=== PATIENT | male | born 1985 | race Caucasian/White ===

== ENCOUNTER 2021-01-18 11:41 | Emergency (ER) | payer OTHER ==
[2021-01-18 13:28] LABS: BASOPHIL 0.7 % (0-2); EOSINOPHIL 3.8 % (0-5); HCT 35.6 % (42.0-52.0); MCH 30.2 pg (25.0-31.0); MCHC 33.7 g/dL (32.0-36.0); MCV 89.7 fL (78.0-100.0); MONOCYTE 10.4 % (0-12); MPV 9.4 fL (6.0-9.5); NEUTROPHIL 59.9 % (41-80); NRBC 0; PLT 197 K/uL (150-400); RBC 3.97 M/uL (4.70-6.00); RDW 13.2 % (11.5-14.0); WBC 9.2 K/uL (4.0-10.5)
[2021-01-18 13:28] LABS: BILIRUBIN NEGATIVE (NEGATIVE); BLOOD NEGATIVE Ery/uL (NEGATIVE); CLARITY CLEAR (CLEAR); COLOR YELLOW (YELLOW); GLUCOSE (U) NORMAL (NORMAL); LEUKOCYTES 1+ Leu/uL (NEGATIVE); NITRITE NEGATIVE (NEGATIVE); PROTEIN NEGATIVE (NEGATIVE); UROBILINOGEN 0.2 mg/dL (0.2-1.0)
[2021-01-18 13:36] LABS: BACTERIA TRACE
[2021-01-18 13:37] LABS: AMPHETAMINES NEGATIVE (NEGATIVE); BARBITURATES NEGATIVE (NEGATIVE); ECSTASY (MDMA) NEGATIVE (NEGATIVE); MARIJUANA (THC) NEGATIVE (NEGATIVE); METHADONE NEGATIVE (NEGATIVE); OPIATES NEGATIVE (NEGATIVE); OXYCODONE NEGATIVE (NEGATIVE)
[2021-01-18 13:54] LABS: ALBUMIN 3.9 g/dL (3.4-5.0); BILIRUBIN - TOTAL 0.3 mg/dL (0.2-1.0); BUN/CREAT RATIO (CALC) 7.2 RATIO; CREATININE 0.69 mg/dL (0.67-1.17); GLOBULIN (CALCULATION) 3.4 g/dL; POTASSIUM 4.2 mmol/L (3.5-5.1); TOTAL PROTEIN 7.3 g/dL (6.4-8.2)
== END 2021-01-19 09:17 | disposition other institution (70) ==
LOC: FER 11:41
PROVIDERS: Physician Assistant
DX: R44.0 Auditory hallucinations (principal); R45.851 Suicidal ideations; U07.1 COVID-19; F20.9 Schizophrenia, unspecified; F17.210 Nicotine dependence, cigarettes, uncomplicated; Z88.0 Allergy status to penicillin
CPT/HCPCS: 36415; 80053; 80305; 81001; 85025; 87088; 99285; U0002